=== PATIENT | male | born 1955 | race Caucasian/White ===

== ENCOUNTER → 2025-01-30 12:54 | Outpatient (REF) | payer MEDICARE, SELFPAY | LOC: RCS 12:54 | PROVIDERS: ATTENDING PHYSICIAN Internal Medicine Cardiovascular Disease; FAMILY PHYSICIAN Internal Medicine | DX: I50.20 Unspecified systolic (congestive) heart failure (principal) | CPT/HCPCS: 93306; Q9950 ==